=== PATIENT | male | born 1950 | race Asian ===

== ENCOUNTER 2016-08-06 12:18 | Emergency (ER) | payer OTHER ==
[2016-08-06] MEDS ORDERED: SULFAMETHOXAZOLE 800 MG/TRIMETHOPRIM 160 MG TABLET ONE (15:13)
[2016-08-06] MEDS ORDERED: CEPHALEXIN 500 MG CAPSULE ONE (15:13)
== END 2016-08-06 15:32 | disposition home or self-care (01) ==
LOC: ED 12:18
DX: L03.116 Cellulitis of left lower limb (principal)